=== PATIENT | female | born 1975 | race Two or more races ===

== ENCOUNTER 2024-10-14 12:40 | Day surgery (SDC) | payer BC, MEDICAID, SELFPAY ==
[2024-10-13 13:23] VITALS: BMI 42.9
[2024-10-14] VITALS (12 sets, daily range): BP systolic 106–136; BP diastolic 62–83; PULSE 63–96; RESP 14–115; TEMP 36.3–36.8; O2SAT 94–99; BMI 42.9
[2024-10-14] MEDS: RINGERS LACTATED 1000 ML 1,000 ML 100 ML IV (13:59)
[2024-10-14] MEDS: LIDOCAINE JELLY 2% (Urojet) 10 ML TUBE TOP (14:00)
[2024-10-14] MEDS: MIDAZOLAM INJ 1 MG/ML VIAL 2 ML (ASD USE ONLY) 2 MG IVP (14:05)
[2024-10-14] MEDS: fentaNYL CIT INJ 50 mCg/ML AMP 2ML (ASD USE ONLY) IVP (14:07)
== END 2024-10-14 15:15 | disposition home or self-care (01) ==
PROVIDERS: PCP Family Medicine; Referring Provider Surgery; Visit Provider Surgery
PROC: 0DBE8ZX Excision of Large Intestine, Via Natural or Artificial Opening Endoscopic, Diagnostic (ICD-10-PCS; CPT 45380; principal; 2024-10-14 13:45)
DX: Z12.11 Encounter for screening for malignant neoplasm of colon (principal); K63.5 Polyp of colon
CPT/HCPCS: 45380; 81025; J1200; J2250; J3010; J7120; A9270